=== PATIENT | female | born 1945 | race Caucasian/White ===

== ENCOUNTER → 2016-11-29 | Outpatient (CLI) | payer OTHER | LOC: FIMAGING 12:27 | DX: Z12.31 Encounter for screening mammogram for malignant neoplasm of breast (principal); R92.8 Other abnormal and inconclusive findings on diagnostic imaging of breast | CPT/HCPCS: G0202 ==

== ENCOUNTER → 2016-12-05 | Outpatient (CLI) | payer OTHER | LOC: FIMAGING 10:15 | PROVIDERS: ATTEND Family Medicine | DX: Z12.39 Encounter for other screening for malignant neoplasm of breast (principal); R92.2 Inconclusive mammogram ==

== ENCOUNTER → 2017-08-02 | Outpatient (CLI) | payer OTHER | LOC: FIMAGING 08:51 | PROVIDERS: ATTEND Family Medicine | DX: R92.8 Other abnormal and inconclusive findings on diagnostic imaging of breast (principal) ==

== ENCOUNTER → 2017-10-23 | Outpatient (CLI) | payer OTHER | LOC: FIMAGING 10:59 | PROVIDERS: ATTEND Family Medicine | DX: Z13.820 Encounter for screening for osteoporosis (principal); Z78.0 Asymptomatic menopausal state; Z87.81 Personal history of (healed) traumatic fracture ==

== ENCOUNTER → 2018-03-11 | Outpatient (CLI) | payer OTHER | DX: Z12.31 Encounter for screening mammogram for malignant neoplasm of breast (principal) ==

== ENCOUNTER → 2018-03-18 | Outpatient (CLI) | payer OTHER | LOC: FIMAGING 15:07 | PROVIDERS: ATTEND Family Medicine | DX: R92.8 Other abnormal and inconclusive findings on diagnostic imaging of breast (principal) ==

== ENCOUNTER 2018-10-20 15:37 | Emergency (ER) | payer OTHER ==
[2018-10-20] MEDS ORDERED: ACETAMINOPHEN 325 MG TAB PO ONE (15:53)
--- NOTE | 2018-10-20 16:05 | EDPHY ---
General - History Smoking Status: Never smoked Time Seen by Provider: 10/20/18 15:48 Narrative: CLINICAL IMPRESSION: Left upper arm pain ASSESSMENT/PLAN: Patient is a 72-year-old female with a history of hypertension and hyperlipidemia who presents with complaint of left upper arm pain after sustaining a mechanical fall just prior to arrival. Patient is nontoxic- appearing, she is in no acute distress on arrival. On physical examination the patient is tender at the proximal humerus without deformity, edema or ecchymosis. Shoulder and humerus x-rays reveal moderate degenerative changes of the shoulder with a high-riding humerus possibly suggestive of rotator cuff pathology; no other acute bony abnormality was noted. There was no evidence of acute fracture, dislocation, compartment syndrome, cellulitis, DVT, septic arthritis or neurovascular compromise. Her history and physical examination is most consistent with left upper arm pain most consistent with contusion. The patient was placed in a shoulder immobilizer for comfort, CMS remained intact. She was given Tylenol in the emergency department with mild improvement of her discomfort, she will continue all of her regular medications and Tylenol as needed at home. She is well established with PCP and will call to schedule follow-up; I have also provided an orthopedic referral which she will call and schedule an appointment. Return precautions discussed-patient to return to the emergency Department for significantly worsening or uncontrolled pain, significant swelling, numbness or tingling of the extremity, paleness or coolness of her digits, fever or for any other concerning symptom. The patient verbalizes understanding and she is in agreement with this plan. DIFFERENTIAL DX: Differential diagnosis includes but not limited to and in no particular order fracture, dislocation, rotator cuff injury, compartment syndrome ED PROCEDURES: Procedure: Shoulder immobilizer. A shoulder immobilizer was applied. After application I returned and re- examined the patient. The patient's circulation and sensation was intact. ED COURSE: CHIEF COMPLAINT: Fall, left upper arm pain HPI: Patient is a 72-year-old female with a history of hypertension hyperlipidemia who presents to the emergency department complaining of left upper arm pain after sustaining a mechanical fall just prior to arrival. Patient reports she was walking in her home, caught her foot on the rug and fell onto her left side. She struck her left upper arm onto the floor. She did not hit her head, there was no loss of consciousness. She denies any neck or back pain. She immediately experienced left upper arm pain and decreased mobility with flexion and extension. She denies any elbow pain or lower arm pain. She denies any numbness or tingling of the extremity. She did land on her left knee however denies any pain or difficulty with walking. Also denies any hip pain. PAST MEDICAL HISTORY: Hypertension, hyperlipidemia Family History: Noncontributory Social History: Denies smoking, alcohol or illicit drug use ROS: A full 10 point review of systems was negative except for those mentioned in HPI. PHYSICAL EXAM: General Appearance: Patient is obese, mildly uncomfortable appearing however not toxic-appearing. HENT: Normocephalic, atraumatic. Bilateral external ears are normal. Nares are clear , mucosa is pink. Oropharynx clear is no erythema or exudates, no tonsillar hypertrophy or asymmetry. Dentition without abnormality. Eyes: PERRLA, no acute vision change, nystagmus, swelling, discharge, pain or photosensitivity. Conjunctiva pink, no pallor or injection Upper Extremities: No clavicle tenderness or deformity. Mild tenderness of upper left humerus. Patient with area of faint hyperemia distal to injury consistent with remote shingles vaccination. No increased warmth on palpation. No obvious deformity, abrasions, ecchymosis. No atrophy or asymmetry compared to opposite side. Limited ROM to flexion/extension/abduction/adduction, pain elicited with all movement. Left elbow is nontender with full range of motion. She is able to supinate and pronate without difficulty. 2+ radial pulses with capillary refill < 2 seconds. 5/5 strength at fingers, wrist, elbow. Resisted wrist extension (radial nerve): normal. Resisted thumb opposition ( median nerve): normal. Resisted finger abduction (ulnar nerve): normal. Sensation intact throughout. Neck: FROM intact to flexion/extension/rotational movement. No midline tenderness. No step-off or deformity. Back: No step-off, palpable bony abnormality, edema, erythema or ecchymosis of the cervical, thoracic or lumbar spines. Thoracic and lumbar spines with no midline or paraspinal muscle tenderness to palpation. Full range of motion of all spines. 5/5 and equal strength of the UEs and LEs bilaterally including shoulder shrug ( except left shoulder as mentioned above). Pulses: 2+ and equal radial, DP and PT pulses bilaterally. Sensation intact and symmetric to light touch from face, UEs and LEs bilaterally. Pelvis is stable and nontender. Lower Extremities: Intact distal pulses, No edema, No tenderness, No cyanosis, full range of motion intact, No calf tenderness bilaterally. Respiratory: There are no retractions, lungs are clear to auscultation. Cardiac: Regular rate and rhythm, no murmurs or gallops. Gastrointestinal: Abdomen is soft, nontender, bowel sounds normal, no masses/ hernia, no rigidity, guarding or focal peritoneal findings. Skin: Warm, dry, no rashes, no nodules on palpation. MEDICAL DECISION MAKING: Patient was seen independently. Secondary supervising physician at time of evaluation was Dr. Guy, she also evaluated this patient. Diagnosis: Left upper arm pain. New, requires workup Summary: See Assessment and Plan for summary of ED visit Clinical lab tests: Not applicable. Independent visualization of images, tracing, or specimens: Yes. Decision to obtain medical records or history from someone other than the patient: No Review / Summarize previous medical records: Yes Discussed patient with another provider: Yes, Dr. Guy Patient Progress: Stable, discharge. (Mona Braga) Medical Decision Making: I have evaluated and participated in the management of this patient. My co- signature indicates that I have reviewed this chart and that I agree with the findings and the plan of care as documented. My personal history and physical findings include: Patient with a trip and fall, landing on her left knee and arm. She is having difficulty elevating her left arm. She complains of pain at the top of the humerus. On examination heart is regular, lungs are clear, she has some mild tenderness with palpation of the proximal humerus. There is no deformity. Sensation is intact to light touch over her left upper extremity. Radial pulses 2+ on the left. She does have pain with attempt to abduct/elevate her left arm. I reviewed the x-ray of her left shoulder and left humerus. No fracture or dislocation. Radiology reading indicates that there is evidence of rotator cuff pathology based upon the position of the humerus. She is being placed in a sling for comfort. She will be given instructions about activity level with this arm. She is advised to follow up with both her primary care physician and an orthopedist if she is not getting better. (Tegan Guy) - Objective Vital Signs: Initial Vital Signs Temperature (C) 36.5 C 10/20/18 15:41 Heart Rate 62 10/20/18 15:41 Respiratory Rate 17 10/20/18 15:41 Blood Pressure 157/95 H 10/20/18 15:41 O2 Sat (%) 96 10/20/18 15:41 O2 Delivery Mode Room Air Allergies/Adverse Reactions: Sulfa (Sulfonamide Antibiotics) Allergy (Mild, Verified 10/20/18 15:39) Rash Home Medications: Medication Instructions Recorded Atorvastatin Calcium 10/20/18 Atorvastatin Calcium 10/20/18 Losartan Potassium 10/20/18 Medications Given: Discontinued Medications Acetaminophen (Tylenol) 650 mg PO EDNOW ONE Stop: 10/20/18 15:54 Last Admin: 10/20/18 16:06 Dose: 650 mg Departure - Departure Disposition: Home, Routine, Self-Care Clinical Impression: Arm pain Qualifiers: Laterality: left Qualified Code(s): M79.602 - Pain in left arm Condition: Good Instructions: Arm Pain (ED) Additional Instructions: DISCHARGE INSTRUCTIONS FROM YOUR DOCTOR Thank you for visiting our emergency department today. Please keep in mind that discharge from the emergency department does not mean that there is nothing wrong - it simply means that we have not identified an emergency condition that requires further evaluation or treatment in the hospital. You should always plan to follow up with primary care for re-evaluation of your condition in the next 2-3 days. If you have been referred to a specialist, please call as soon as possible ( today or tomorrow) to schedule your follow up appointment at the appropriate time; you have been given an orthopedic referral, please call to schedule follow -up appointment. Rest, no heavy lifting, pushing, pulling, carrying with the affected arm. Apply ice on and off to the painful area, whichever feels better. Wear the sling as applied on and off as applied until follow-up. Gentle range of motion exercises several times daily to prevent your shoulder from stiffening up -- pendulum exercises as we discussed. Avoid prolonged immobilization as we discussed as shoulder injuries are prone to "frozen shoulder" which is a significant complication and requires intensive physical therapy to rehabilitate. I recommend Tylenol 500-1000 mg every 6-8 hours, do not exceed 3000 mg in 24 hr period. Continue your regular medication as prescribed. Call and schedule with a primary care provider for a follow-up appointment and to establish care for your primary care needs. Return for increased or unmanageable pain, inability to move the shoulder or neck, fever, chills, redness, warmth, swelling, numbness, tingling or weakness of the arm, loss of thermoforming operator strength, coolness of the fingertips, chest pain, shortness of breath, or for any other new, worsening or worrisome symptoms. People present with illnesses and injuries in different ways, and it is always possible that we have missed something. You may always return for re-evaluation if symptoms worsen or if they are not improving or if you develop new/different symptoms. Again, thank you for choosing our emergency department. We hope that you feel better. Referrals: Caroline Puente MD [Primary Care Provider] - As per Instructions Kavon Steen MD [Medical Doctor] - 2-3 days, call for appt.
[2018-10-20 16:45] VITALS: BP 144/85
== END 2018-10-20 16:54 | disposition home or self-care (01) ==
DX: M79.602 Pain in left arm (principal); I10 Essential (primary) hypertension; W01.0XXA Fall on same level from slipping, tripping and stumbling without subsequent striking against object, initial encounter; Y93.01 Activity, walking, marching and hiking; Y92.009 Unspecified place in unspecified non-institutional (private) residence as the place of occurrence of the external cause
CPT/HCPCS: A4565

== ENCOUNTER → 2018-12-30 | Outpatient (CLI) | payer OTHER | LOC: FIMAGING 15:21 ==